=== PATIENT | male | born 1975 | race American Indian/Alaskan Native ===

== ENCOUNTER 2019-03-28 09:06 | Emergency (ER) | payer SELFPAY ==
[2019-03-28 09:17] VITALS: BP 163/106
[2019-03-28] MEDS ORDERED: IBUPROFEN PO ONE (10:26)
[2019-03-28] MEDS ORDERED: NORCO 5/325 PO ONE (10:26)
--- NOTE | 2019-03-28 11:41 | XRay Report ---
Left elbow 3 views: History: Pain and swelling after blunt trauma. Findings: No fracture or dislocation. No joint effusion. Large spur posterior superior olecranon process. No soft tissue calcification Impression: No evidence of acute fracture.
--- NOTE | 2019-03-28 11:56 | Emergency Department Report ---
ED Extremity Problem HPI - General Chief complaint: Extremity Injury, Upper Stated complaint: L ARM INJURY Time Seen by Provider: 03/28/19 10:21 Source: patient Mode of arrival: Ambulatory Limitations: No Limitations - History of Present Illness Initial comments: Patient is a 43-year-old [place] male who is complaining of left elbow swelling. Patient states he his elbow while at work and the next day he noted increasing swelling. Patient states the pain is a 6 out of 10 in severity Hurst worse when he is moving the elbow. Patient has a hard time flexing greater than 90 or fully extending. Patient denies any other trauma at this time. Patient states aching throbbing pain. Patient denies any fevers or chills nausea vomiting at this time. Severity scale (0 -10): 5 - Related Data Previous Rx's Medication Instructions Recorded Last Taken Type HYDROcodone/APAP 5-325 [Howard 1 each PO Q6HR PRN #16 tablet 11/12/15 Unknown Rx 5/325] amLODIPine [Norvasc] 5 mg PO DAILY #20 tab 11/12/15 Unknown Rx Ibuprofen [Motrin 800 MG tab] 800 mg PO Q8HR PRN #10 tablet 03/28/19 Unknown Rx traMADol [Ultram] 50 mg PO Q6HR PRN #12 tablet 03/28/19 Unknown Rx Allergies Allergy/AdvReac Type Severity Reaction Status Date / Time No Known Allergies Allergy Verified 03/28/19 09:10 ED Review of Systems ROS: Stated complaint: L ARM INJURY Other details as noted in HPI Comment: All other systems reviewed and negative ED Past Medical Hx - Past Medical History Hx Hypertension: Yes - Surgical History Past Surgical History?: No - Social History Smoking Status: Never Smoker Substance Use Type: None - Medications Home Medications: Home Medications Medication Instructions Recorded Confirmed Last Taken Type HYDROcodone/APAP 5-325 [Howard 1 each PO Q6HR PRN #16 tablet 11/12/15 Unknown Rx 5/325] amLODIPine [Norvasc] 5 mg PO DAILY #20 tab 11/12/15 Unknown Rx Ibuprofen [Motrin 800 MG tab] 800 mg PO Q8HR PRN #10 tablet 03/28/19 Unknown Rx traMADol [Ultram] 50 mg PO Q6HR PRN #12 tablet 03/28/19 Unknown Rx ED Physical Exam - General Limitations: No Limitations General appearance: alert, in no apparent distress - Head Head exam: Present: atraumatic, normocephalic - Eye Eye exam: Present: normal appearance - ENT ENT exam: Present: mucous membranes moist - Neck Neck exam: Present: normal inspection - Respiratory Respiratory exam: Present: normal lung sounds bilaterally. Absent: respiratory distress - Cardiovascular Cardiovascular Exam: Present: regular rate, normal rhythm. Absent: systolic murmur, diastolic murmur, rubs, gallop - GI/Abdominal GI/Abdominal exam: Present: soft, normal bowel sounds - Rectal Rectal exam: Present: deferred - Extremities Exam Extremities exam: Present: normal inspection - Expanded Upper Extremity Exam Left Elbow exam: Present: tenderness, swelling, effusion. Absent: full ROM, abrasion, laceration, ecchymosis, deformity, crepidus, dislocation, erythema - Back Exam Back exam: Present: normal inspection - Neurological Exam Neurological exam: Present: alert, oriented X3 - Psychiatric Psychiatric exam: Present: normal affect, normal mood - Skin Skin exam: Present: warm, dry, intact, normal color. Absent: rash ED Course Vital Signs 03/28/19 03/28/19 09:16 10:33 Temperature 98.3 F Pulse Rate 88 Respiratory 16 16 Rate Blood Pressure 163/106 [Left] O2 Sat by Pulse 98 Oximetry ED Medical Decision Making - Radiology Data [facility] [address] [place] [address] XRay Report Signed Patient: SEDA STERN MR#: [id number] : 1975 Acct:[id number] Age/Sex: 43 / M ADM Date: 03/28/19 Loc: ED Attending Dr: Ordering Physician: LOKI SMITH MD Date of Service: 03/28/19 Procedure(s): XR elbow 3+V LT Accession Number(s): [id number] cc: LOKI SMITH MD Fluoro Time In Minutes: Left elbow 3 views: History: Pain and swelling after blunt trauma. Findings: No fracture or dislocation. No joint effusion. Large spur posterior superior olecranon process. No soft tissue calcification Impression: No evidence of acute fracture. Transcribed By: PTP Dictated By: ARASELI MONTGOMERY MD Electronically Authenticated By: ARASELI MONTGOMERY MD Signed Date/Time: 03/28/19 1120 DD/ 1119 TD/TT: 03/28/19 1120 - Medical Decision Making Patient is a 43-year-old -[place] female who is presenting with swelling to his left elbow after hitting it while at work. X-rays shows no acute fracture does have a large bone spur at the olecranon. Patient likely with olecranon bursitis secondary to trauma. Patient will be placed in an Omar wrap be given meds for symptomatic relief. Patient states 800 mg Motrin didn't relieve his pain. Critical care attestation.: If time is entered above; I have spent that time in minutes in the direct care of this critically ill patient, excluding procedure time. ED Disposition Clinical Impression: Bursitis of left elbow Qualifiers: Elbow bursitis location: olecranon bursitis Qualified Code(s): M70.22 - Olecranon bursitis, left elbow Disposition: TO HOME OR SELFCARE Is pt being admited?: No Does the pt Need Aspirin: No Condition: Stable Instructions: Elbow Bursitis (ED), RICE Therapy (ED) Referrals: JESSICA MORSE MD [Staff Physician] - 3-5 Days Time of Disposition: 11:55
== END 2019-03-28 12:03 | disposition home or self-care (01) ==
LOC: ED 09:06
DX: M70.22 Olecranon bursitis, left elbow (principal); I10 Essential (primary) hypertension; Z79.899 Other long term (current) drug therapy
CPT/HCPCS: 99282

== ENCOUNTER 2019-11-28 13:39 | Emergency (ER) | payer SELFPAY ==
[2019-11-28 14:16] VITALS: BP 157/102
--- NOTE | 2019-11-28 14:16 | Emergency Department Report ---
Chief Complaint: Dental/Oral Stated Complaint: TOOTH PAIN Time Seen by Provider: 11/28/19 14:17 - HPI History of Present Illness: 44 y/o m p/w dentalgia over tooth 17 chronic htn no stridor or dysphonia no other complains speakign in full sentences bp improved tachycardia resolved no emergent condition present given outpatient referral to pmd, dental meds given no indication for narcotics at this time S1, S2, regular rate and rhythm. No murmurs, rubs or gallops. Breath sounds clear to auscultation bilaterally. Abdomen soft and benign, with no rebound, guarding or peritoneal signs. Head is normocephalic atraumatic. The neck is supple. There is no adenopathy. Extraocular movements are intact. there is no facial droop. The tongue is midline. The extraocular movements are intact bilaterally. Hearing is intact. Phonation is within normal limits. Speech is fluid and luccid. There is 5 out of 5 strength in 4 extremities. Sensation is intact to light touch in 4 extremities. in. There is a normal gait. There is no stridor, dysphonia, chills Mr. malocclusion. Gingival plaques are noted. There is no asymmetry intraorally. The tongue is midline. The tongue is not elevated. No gingival abscesses are noted. Vital Signs 11/28/19 11/28/19 14:11 14:15 Temperature 98.1 F Pulse Rate 108 H 97 H Respiratory 18 Rate Blood Pressure 175/117 Blood Pressure 157/102 [Left] O2 Sat by Pulse 100 Oximetry MSE screening note: Focused history and physical exam performed. Due to findings the following was ordered: ED Disposition for MSE Clinical Impression: Dentalgia, Encounter for medical screening examination Disposition: Z-07 MED SCREENING EXAM-LEFT Is pt being admited?: No Does the pt Need Aspirin: No Condition: Stable Additional Instructions: follow up with a dentist as soon as possible take the medications as needed/directed follow up with a pmd withn 4 weeks diet as tolerated floss daily brush teeth twice daily return right away with new worse or different symptoms Prescriptions: Ibuprofen [Motrin] 600 mg PO Q8H PRN #30 tablet PRN Reason: Pain Acetaminophen [Non-Aspirin Extra Strength] 500 mg PO Q6HR PRN #30 tablet PRN Reason: Pain , Severe (7-10) Amlodipine Besylate [Norvasc] 2.5 mg PO QDAY #30 tablet Chlorhexidine Mouthwash [Peridex] 15 ml MM BID #1 bottle Referrals: [facility] [Provider Group] - 3-5 Days [facility] [Provider Group] - 3-5 Days [facility] [Outside] - 3-5 Days
== END 2019-11-28 14:30 | disposition left against medical advice (07) ==
LOC: ED 13:39
DX: K08.89 Other specified disorders of teeth and supporting structures (principal); Z00.00 Encounter for general adult medical examination without abnormal findings
CPT/HCPCS: 99281